=== PATIENT | female | born 1970 | race Caucasian/White ===

== ENCOUNTER 2023-03-16 10:38 | Outpatient (OUT) | payer SELFPAY ==
--- NOTE | 2023-03-16 | XR_ITS ---
[facility] [id number] Patient Name: LETICIA BRODY MRN: [id number] date: 1970 Sex: F Assigned Patient Location: [facility] Current Patient Location: [facility] Accession/Order Number: [id number] Exam Date: 03/16/2023 10:30 Report Date: 03/16/2023 12:09 At the request of: SHYLA HERNÁNDEZ Procedure: XR foot LT min 3V PROCEDURE: XR foot LT min 3V HISTORY: LEFT FOOT PAIN ; fifth metatarsal pain COMPARISON: None. FINDINGS: BONES:Degenerative enthesopathic spurring of the calcaneus. No fracture, dislocation, bone lesion. No significant joint space narrowing or periarticular osteophytes. SOFT TISSUES:No visible soft tissue swelling. EFFUSION:None visible. OTHER: Negative. XR/XR foot LT min 3V IMPRESSION: 1. No acute findings or significant degenerative changes to account for patient's symptoms. Electronically authenticated by: DEVANG YATES Date: 03/16/2023 12:09
== END 2023-03-16 10:39 | disposition home or self-care (01) ==
PROVIDERS: Visit Provider Podiatrist Foot & Ankle Surgery
DX: M79.672 Pain in left foot (principal)
CPT/HCPCS: 73630